=== PATIENT | male | born 1990 | race Caucasian/White ===

== ENCOUNTER 2018-01-16 05:06 | Emergency (ER) | payer OTHER ==
[~2018-01-16] VITALS: Ht 182.9 cm; Wt 95.2 kg
== END 2018-01-16 06:12 | disposition home or self-care (01) ==
LOC: ER 05:06
DX: T50.901A Poisoning by unspecified drugs, medicaments and biological substances, accidental (unintentional), initial encounter (principal); F10.129 Alcohol abuse with intoxication, unspecified
CPT/HCPCS: 99283

== ENCOUNTER 2025-06-14 04:15 | Emergency (ER) | payer OTHER ==
[~2025-06-14] VITALS: Ht 180.3 cm; Wt 99.8 kg
[~2025-06-14 04:15] MED LIST: ASCO500 PO; CIPR500 PO; DOCU100 PO; FERSU300 PO; VISBIOME 112.51 EACH PO
[2025-06-14 05:37] VITALS: BP 154/105
== END 2025-06-14 05:39 | disposition home or self-care (01) ==
LOC: ER 04:15
DX: S46.211A Strain of muscle, fascia and tendon of other parts of biceps, right arm, initial encounter (principal); Z79.899 Other long term (current) drug therapy; W20.8XXA Other cause of strike by thrown, projected or falling object, initial encounter
CPT/HCPCS: 73080; 99283-25